=== PATIENT | male | born 1990 | race Caucasian/White ===

== ENCOUNTER → 2017-01-07 | Day surgery (SDC) | payer OTHER, MEDICARE, MEDICAID ==
[~2017-01-07] MED LIST: Bupivacaine 0.5% 30 ML SDV INJECT ONE; Dexamethasone 4 MG/ML 5 ML MDV IVPUSH ONE; Glycopyrrolate 0.2 MG/ML 5 ML MDV IV ONE; Ketorolac 30 MG/ML SDV IVPUSH ONE; Lactated Ringers 1,000 ML IV ONE; Lactated Ringers 1,000 ML IV SCH; Lidocaine 1% with EPINEPHrine 1:100,000 20 ML MDV INJECT ONE; Lidocaine 2% 100 MG/5 ML Syringe IVPUSH ONE; Midazolam 1 MG/ML 2 ML SDV IV ONE; Neostigmine Methylsulfate 10 MG/10 ML MDV IVPUSH ONE; Ondansetron 4 MG/2 ML SDV IVPUSH ONE; Propofol 200 MG/20 ML SDV IV ONE; Rocuronium 50 MG/5 ML Vial IV ONE; fentaNYL 100 MCG/2 ML SDV IV ONE
--- NOTE | 2017-01-07 09:24 | PCM.OPNOTE ---
- General Post-Op/Procedure Note Date of Surgery/Procedure: 01/07/17 Operative Procedure(s): pilonidal cystectomy Findings: pilonidal cyst with abscess Pre Op Diagnosis: pilonidal cyst with abscess Post-Op Diagnosis: Same Anesthesia Technique: General ET Tube, Local (9 ml 1 % lido with epi/0.5% buvipicaine) Primary Surgeon: Desmond Ca Anesthesia Provider: Gena Wiley Pathology: pilonidal cyst Complications: None Condition: Good Free Text/Narrative:: see dictation
[2017-01-07 11:47] VITALS: BP 111/67
--- NOTE | 2017-01-07 11:54 | OR ---
DATE OF OPERATION: 01/07/2017 SURGEON: Desmond Ca MD PROCEDURE PERFORMED: Pilonidal cystectomy. PREOPERATIVE DIAGNOSIS: Pilonidal cyst. POSTOPERATIVE DIAGNOSIS: Pilonidal cyst. 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 He was offered and accepted cystectomy. DESCRIPTION OF PROCEDURE: After an excellent general anesthetic was administered, the patient was placed in the prone jackknife position, prepped and draped in the usual sterile manner. A 9 mL of a 1:1 mixture of 1% lidocaine with epinephrine with 0.5% bupivacaine was used to infiltrate around the site. In addition, he looked like he had a repeat collection of inflamed fluid on the left buttock, which was the primary area where the abscess occurred. A circular incision was then made proximally 3 cm x 1 cm in the gluteal cleft. Using sharp dissection, the pilonidal cyst was excised circumferentially and then coming laterally into the abscess cavity, it was dissected free from the surrounding structures. The skin was then marsupialized to the bed keeping the left lateral flap open to allow for drainage. The area was irrigated and after assuring hemostasis, the wound was packed with Aquacel Ag, covered with a 2 x 2 and then a DuoDERM was placed over top. The patient tolerated the procedure well, and was taken to recovery in good condition. /[id number] /SHELLYL
== END | disposition home or self-care (01) ==
LOC: FB.SDS 07:15
PROVIDERS: ATTEND Surgery
DX: L05.91 Pilonidal cyst without abscess (principal); F41.9 Anxiety disorder, unspecified; F32.9 Major depressive disorder, single episode, unspecified; Z88.8 Allergy status to other drugs, medicaments and biological substances; Z98.890 Other specified postprocedural states; F17.210 Nicotine dependence, cigarettes, uncomplicated
CPT/HCPCS: 00300; 11770; J1100; J1885; J2250; J2405; J2704; J2710; J3010; J7120; 88304

== ENCOUNTER 2019-12-16 22:52 | Emergency (ER) | payer MEDICARE, MEDICAID ==
--- NOTE | 2019-12-16 23:39 | EDM.PDOC ---
ED HPI GENERAL MEDICAL PROBLEM - General Chief Complaint: Behavioral/Psych Time Seen by Provider: 12/16/19 23:35 Source of Information: Reports: Patient, Family History Limitations: Reports: No Limitations - History of Present Illness INITIAL COMMENTS - FREE TEXT/NARRATIVE: c/o altered behavior pt lives with his mother and step father, not working, eating poorly, had only coffee for supper, ate little for lunch pt evasive, sullen, guarded, affect very flat does answer some questions pt brought in by his mother who states he has hallucinated 5 times in past month, that he has stared at her a number of times with a blank stare that she find frightening, that he has been withdrawn, that he stopped his meds 1m ago pt states that his GF "18 minutes ago", his mother apparently drove him dir ectly here to the ED. mother reports her father had been hospice for the past 2m, that he from "old age" says he was last hospitalized "a long time ago" for mental health in [place], that he was there 6 months pt cannot explain why he is not taking his meds denies being suicidal after thinking about his answer for 10 seconds, has h/o suicide attempt by OD states he say his psychiatrist Dr Chavez last 2w ago smokes 1.5 ppd, denies THC, denies street drugs, states no alcohol in the last 3 days, states he drinks "half a case" when he drinks mother reports that pt's father and brother both committed suicide - Related Data Allergies Allergy/AdvReac Type Severity Reaction Status Date / Time bupropion [From Wellbutrin] Allergy Seizure Verified 01/06/17 14:32 Home Meds: Home Meds FLUoxetine [PROzac] 40 mg PO DAILY 07/13/14 [History] [place] Carbonate 900 mg PO DAILY 01/06/17 [History] cloZAPine [Clozaril] 50 mg PO DAILY 01/06/17 [History] Past Medical History - Past Health History Medical/Surgical History: Denies Medical/Surgical History Cardiovascular History: Reports: None Respiratory History: Reports: None Gastrointestinal History: Reports: Other (See Below) Other Gastrointestinal History: STATES THROWS UP IN PAST 6 MOS. STATES HAS HAD SOME MEDS CHANGED WITH DR. CHAVEZ HIS MENTAL HEALTH DOCTOR ET THAT MD IS AWARE OF THIS. Genitourinary History: Reports: None AUDIT MGR History: Reports: None Musculoskeletal History: Reports: None Neurological History: Reports: None Psychiatric History: Reports: Addiction, Anxiety, Bipolar, Depression, Schizophrenia Endocrine/Metabolic History: Reports: None Hematologic History: Reports: None Immunologic History: Reports: None Oncologic (Cancer) History: Reports: None Dermatologic History: Reports: None, Other (See Below) Other Dermatologic History: Hx pilonidal cyst; has had I&D x3 in the past - Infectious Disease History Infectious Disease History: Reports: Chicken Pox - Past Surgical History Head Surgeries/Procedures: Reports: None HEENT Surgical History: Reports: Oral Surgery Social & Family History - Family History Family Medical History: Noncontributory ED ROS GENERAL - Review of Systems Review Of Systems: See Below Constitutional: Reports: No Symptoms HEENT: Reports: No Symptoms Respiratory: Reports: No Symptoms Cardiovascular: Reports: No Symptoms Endocrine: Reports: No Symptoms GI/Abdominal: Reports: No Symptoms : Reports: No Symptoms Musculoskeletal: Reports: No Symptoms Skin: Reports: No Symptoms Neurological: Reports: No Symptoms Psychiatric: Reports: Depression, Hallucinations, Mood Lability, Suicidal Ideation Hematologic/Lymphatic: Reports: No Symptoms Immunologic: Reports: No Symptoms ED EXAM, GENERAL - Physical Exam Exam: See Below Exam Limited By: No Limitations General Appearance: Alert, WD/WN Ears: Normal External Exam, Hearing Grossly Normal Nose: Normal Inspection, Normal Mucosa, No Blood Throat/Mouth: Normal Inspection, Normal Lips, Normal Teeth, Normal Gums, Normal Oropharynx, Normal Voice, No Airway Compromise Head: Atraumatic, Normocephalic Neck: Normal Inspection, Supple, Non-Tender, Full Range of Motion. No: Lymphadenopathy (R), Lymphadenopathy (L) Respiratory/Chest: No Respiratory Distress, Lungs Clear, Normal Breath Sounds, No Accessory Muscle Use, Chest Non-Tender Cardiovascular: Regular Rate, Rhythm, No Edema, No Gallop, No JVD, No Murmur, No Rub GI/Abdominal: Normal Bowel Sounds, Soft, Non-Tender, No Distention Back Exam: Normal Inspection, Full Range of Motion, NT Extremities: Normal Inspection, Normal Range of Motion, Non-Tender, No Pedal Edema Neurological: Alert, Oriented, CN II-XII Intact, No Motor/Sensory Deficits Psychiatric: Depressed Mood, Flat Affect, Other (depressed mood, evasive, denies SI but is not believable, recent hallucinations per mother, withdrawn, noncompliant with meds) Skin Exam: Warm, Dry, Intact, Normal Color, No Rash Lymphatic: No Adenopathy Course - Vital Signs Last Recorded V/S: Last Vital Signs Temp 36.4 C 12/16/19 22:52 Pulse 82 12/16/19 22:52 Resp 17 12/16/19 22:52 BP 129/82 12/16/19 22:52 Pulse Ox 96 12/16/19 22:52 - Orders/Labs/Meds Orders: Active Orders 24 hr Category Date Time Status EKG Documentation Completion [RC] ASDIRECTED Care 12/16/19 23:31 Active EKG 12 Lead [EK] Routine Ther 12/16/19 23:30 Ordered Labs: Laboratory Tests 12/16/19 12/16/19 12/16/19 Range/Units 23:45 23:45 23:45 WBC 7.9 (4.5-12.0) X10-3/uL RBC 5.34 (4.30-5.75) x10(6)uL Hgb 16.3 (13.5-17.8) g/dL Hct 49.0 (30.0-51.3) % MCV 91.8 (80-96) fL MCH 30.4 (27.7-33.6) pg MCHC 33.1 (32.2-35.4) g/dL RDW 12.2 (11.5-15.5) % Plt Count 193 (125-369) X10(3)uL MPV 8.3 (7.4-10.4) fL Neut % (Auto) 75.1 (46-82) % Lymph % (Auto) 16.3 (13-37) % [place] % (Auto) 7.3 (4-12) % Eos % (Auto) 1 (1.0-5.0) % Baso % (Auto) 1 (0-2) % Neut # (Auto) 5.9 (1.6-8.3) # Lymph # (Auto) 1.3 (0.6-5.0) # [place] # (Auto) 0.6 (0.0-1.3) # Eos # (Auto) 0.0 (0.0-0.8) # Baso # (Auto) 0.1 (0.0-0.2) # Sodium 136 (135-145) mmol/L Potassium 3.6 (3.5-5.3) mmol/L Chloride 98 L (100-110) mmol/L Carbon Dioxide 27 (21-32) mmol/L BUN 9 (7-18) mg/dL Creatinine 1.1 (0.70-1.30) mg/dL Est Cr Clr Drug Dosing TNP Estimated GFR (MDRD) > 60 (>60) BUN/Creatinine Ratio 8.2 L (9-20) Glucose 125 H (80-116) mg/dL Calcium 9.7 (8.6-10.2) mg/dL Total Bilirubin 2.1 H (0.1-1.3) mg/dL AST 55 H (5-25) IU/L ALT 60 H (12-36) U/L Alkaline Phosphatase 86 (56-112) IU/L Total Protein 7.8 (6.0-8.0) g/dL Albumin 4.4 (3.5-5.2) g/dL Globulin 3.4 g/dL Albumin/Globulin Ratio 1.3 TSH, Ultra Sensitive 4.03 H (0.36-3.74) IU/mL Urine Color (YELLOW) Urine Appearance (CLEAR) Urine pH (5.0-6.5) Ur Specific [place] (1.010-1.025) Urine Protein (NEGATIVE) mg/dL Urine Glucose (UA) (NORMAL) mg/dL Urine Ketones (NEGATIVE) mg/dL Urine Occult Blood (NEGATIVE) Urine Nitrite (NEGATIVE) Urine Bilirubin (NEGATIVE) Urine Urobilinogen (NEGATIVE) mg/dL Ur Leukocyte Esterase (NEGATIVE) Urine RBC (0-5) Urine WBC (0-5) Ur Squamous Epith Cells (NS,R,O) Urine Bacteria (NS) Salicylates < 2.8 L (<2.8) mg/dL Urine Opiates Screen (NEGATIVE) Ur Oxycodone Screen (NEGATIVE) Ur Propoxyphene Screen (NEGATIVE) Acetaminophen < 2 L (<2) ug/mL Ur Barbituates Screen (NEGATIVE) Ur Tricyclics Screen (NEGATIVE) Ur Phencyclidine Scrn (NEGATIVE) Ur Amphetamine Screen (NEGATIVE) Urine MDMA Screen (NEGATIVE) U Benzodiazepines Scrn (NEGATIVE) U Cocaine Metab Screen (NEGATIVE) U Marijuana (THC) Screen (NEGATIVE) Ethyl Alcohol < 0.03 (<0.03) % 12/17/19 12/17/19 Range/Units 00:02 00:02 WBC (4.5-12.0) X10-3/uL RBC (4.30-5.75) x10(6)uL Hgb (13.5-17.8) g/dL Hct (30.0-51.3) % MCV (80-96) fL MCH (27.7-33.6) pg MCHC (32.2-35.4) g/dL RDW (11.5-15.5) % Plt Count (125-369) X10(3)uL MPV (7.4-10.4) fL Neut % (Auto) (46-82) % Lymph % (Auto) (13-37) % [place] % (Auto) (4-12) % Eos % (Auto) (1.0-5.0) % Baso % (Auto) (0-2) % Neut # (Auto) (1.6-8.3) # Lymph # (Auto) (0.6-5.0) # [place] # (Auto) (0.0-1.3) # Eos # (Auto) (0.0-0.8) # Baso # (Auto) (0.0-0.2) # Sodium (135-145) mmol/L Potassium (3.5-5.3) mmol/L Chloride (100-110) mmol/L Carbon Dioxide (21-32) mmol/L BUN (7-18) mg/dL Creatinine (0.70-1.30) mg/dL Est Cr Clr Drug Dosing Estimated GFR (MDRD) (>60) BUN/Creatinine Ratio (9-20) Glucose (80-116) mg/dL Calcium (8.6-10.2) mg/dL Total Bilirubin (0.1-1.3) mg/dL AST (5-25) IU/L ALT (12-36) U/L Alkaline Phosphatase (56-112) IU/L Total Protein (6.0-8.0) g/dL Albumin (3.5-5.2) g/dL Globulin g/dL Albumin/Globulin Ratio TSH, Ultra Sensitive (0.36-3.74) IU/mL Urine Color Yellow (YELLOW) Urine Appearance Clear (CLEAR) Urine pH 5.0 (5.0-6.5) Ur Specific [place] 1.020 (1.010-1.025) Urine Protein Negative (NEGATIVE) mg/dL Urine Glucose (UA) Normal (NORMAL) mg/dL Urine Ketones 15 H (NEGATIVE) mg/dL Urine Occult Blood Negative (NEGATIVE) Urine Nitrite Negative (NEGATIVE) Urine Bilirubin Negative (NEGATIVE) Urine Urobilinogen 1 H (NEGATIVE) mg/dL Ur Leukocyte Esterase Negative (NEGATIVE) Urine RBC 0-5 (0-5) Urine WBC 0-5 (0-5) Ur Squamous Epith Cells Few H (NS,R,O) Urine Bacteria Few H (NS) Salicylates (<2.8) mg/dL Urine Opiates Screen Negative (NEGATIVE) Ur Oxycodone Screen Negative (NEGATIVE) Ur Propoxyphene Screen Negative (NEGATIVE) Acetaminophen (<2) ug/mL Ur Barbituates Screen Negative (NEGATIVE) Ur Tricyclics Screen Negative (NEGATIVE) Ur Phencyclidine Scrn Negative (NEGATIVE) Ur Amphetamine Screen Negative (NEGATIVE) Urine MDMA Screen Negative (NEGATIVE) U Benzodiazepines Scrn Negative (NEGATIVE) U Cocaine Metab Screen Negative (NEGATIVE) U Marijuana (THC) Screen Negative (NEGATIVE) Ethyl Alcohol (<0.03) % - Re-Assessments/Exams Free Text/Narrative Re-Assessment/Exam: 12/17/19 01:03 pt visited with mental health worker via video conference with [facility] in [place], both the mental health worker and myself believe that the pt is depressed, detached from reality and a suicide risk. I signed a 72-hour hold, pt and his mother have been informed. Pt did not have a reply, has been rather restless, twisting his face mask in his hands, staring off into space, saying very little. 12/17/19 05:15 D/w Dr Dave psychiatrist out of [place] who reviewed his paperwork and accepted pt in transfer. Pt is medically cleared. Labs show 15 mg/dl ketones in urine c/w mild dehydration. Also with mild increase AST/ALT/bili at 55/60/2.1 c/w baseline in past of 19/14/0.7, which is most c/w alcoholic hepatitis. Ethanol and urine drug screen is neg. 12/17/19 05:22 pt had been on fluoxetine and clozapine and lithium in the past. currently not taking any of these meds. MPMP is neg in the past year Departure - Departure Time of Disposition: 05:19 Disposition: DC/Tfer to Psych Hosp/Unit [facility] Condition: Undetermined Clinical Impression: Acute depression, Hallucinations, Grief reaction, Alcohol abuse, Nicotine addiction, At risk for suicide - Discharge Information *PRESCRIPTION DRUG MONITORING PROGRAM REVIEWED*: Not Applicable *COPY OF PRESCRIPTION DRUG MONITORING REPORT IN PATIENT JAISON: Not Applicable Referrals: PCP,None [Primary Care Provider] - Forms: ED Department Discharge Sepsis Event Note (ED) - Evaluation Sepsis Screening Result: No Definite Risk - Focused Exam Vital Signs: Vital Signs Temp Pulse Resp BP Pulse Ox 12/16/19 22:52 36.4 C 82 17 129/82 96 - My Orders Last 24 Hours: My Active Orders 12/16/19 23:30 EKG 12 Lead [EK] Routine 12/16/19 23:31 EKG Documentation Completion [RC] ASDIRECTED - Assessment/Plan Last 24 Hours: My Active Orders 12/16/19 23:30 EKG 12 Lead [EK] Routine 12/16/19 23:31 EKG Documentation Completion [RC] ASDIRECTED
[2019-12-17] LABS: ACETAMINOPHEN < 2 ug/mL (<2)
[2019-12-17 07:59] VITALS: BP 112/57; PULSE 71
== END 2019-12-17 08:05 ==
LOC: FB.ED 22:52
DX: F32.9 Major depressive disorder, single episode, unspecified (principal); R44.3 Hallucinations, unspecified; F43.20 Adjustment disorder, unspecified; F11.20 Opioid dependence, uncomplicated; F10.20 Alcohol dependence, uncomplicated; Z88.8 Allergy status to other drugs, medicaments and biological substances; Z79.899 Other long term (current) drug therapy
CPT/HCPCS: 36415; 80053; 80305-QW; 80307; 81001; 84443; 85025; 93005; 99285; 99285-25